=== PATIENT | male | born 1940 | race Two or more races ===

== ENCOUNTER 2019-09-05 09:59 | Emergency (ER) | payer MEDICARE, MEDICAID ==
[~2019-09-05] VITALS: Ht 157.5 cm; Wt 79.8 kg
--- NOTE | 2019-09-05 10:09 | NUR ---
DR TITUS AT BEDSIDE
--- NOTE | 2019-09-05 10:24 | NUR ---
URINE SAMPLE SENT TO LAB
[2019-09-05 10:28] LABS: APPEARANCE,URINE Clear (CLEAR); BILIRUBIN,URINE Negative (NEGATIVE); BLOOD, URINE Trace-intact Ery/uL (NEGATIVE); COLOR,URINE Yellow (YELLOW); KETONES,URINE Negative (NEGATIVE); LEUKOCYTE ESTERASE ,URINE Negative (NEGATIVE); NITRITE, URINE Negative (NEGATIVE); PH,URINE 5.5 (5.0-8.0); PROTEIN,URINE Negative (NEGATIVE); UGLUCOSE Negative (NEGATIVE); UROBILINOGEN,URINE 0.2 EU/dL (0.2)
[2019-09-05 10:38] LABS: BACTERIA,URINE None seen /HPF (None Seen); SQUAMOUS EPITHELIAL CELL,UR Rare /HPF (None Seen); WBC,URINE 0-1 /HPF (0-3)
--- NOTE | 2019-09-05 11:25 | NUR ---
Patient discharged to home in stable condition. Written and verbal after care instructions given. Patient verbalizes understanding of instruction.
[2019-09-05 12:16] VITALS: BP 168/93
== END 2019-09-05 11:25 | disposition home or self-care (01) ==
LOC: ER 09:59 → EDBD 09:59 → ER 11:25
DX: R51 Headache (principal); I10 Essential (primary) hypertension
CPT/HCPCS: 81000-TC

== ENCOUNTER 2021-06-26 18:36 | Inpatient (IN) | payer MEDICARE, OTHER ==
[~2021-06-26] VITALS: Ht 175.3 cm; Wt 86.2 kg
--- NOTE | 2021-06-26 18:52 | NUR ---
BIBSON C/O SHORTNESS OF BREATH STARTED TODAY. PT A/OX4. ON NRB 15L. LLQ S/P INGUINAL HERNIA REPAIR FROM 06/21/21 KEPT C/D/I. CONNECTED PT TO POX AND TELE MONITOR.
--- NOTE | 2021-06-26 18:53 | NUR ---
PT AWAKE AND RESPONSIVE; ON NRB SATTING AT 77%
--- NOTE | 2021-06-26 18:55 | NUR ---
RT AT PT'S BEDSIDE
--- NOTE | 2021-06-26 18:56 | NUR ---
PT'S O2 SATTING UP TO 95% ON NRB
--- NOTE | 2021-06-26 18:58 | NUR ---
LAC #18G S/L; PATENT AND INTACT. BLOOD WORK COLLECTED AND SENT TO LAB
--- NOTE | 2021-06-26 19:00 | NUR ---
PT ON HI-FLOW 40L FIO2 100%; SATTING AT 95%. TOLERATING WELL
--- NOTE | 2021-06-26 19:03 | NUR ---
Vivienne mayes in EDM - 06/27/21 at 0226 by KAILA ANNABEL C/O SHORTNESS OF BREATH STARTED TODAY. PT A/OX4. ON NRB 15L. LLQ S/P INGUINAL HERNIA REPAIR FROM 06/21/21 KEPT C/D/I. CONNECTED PT TO POX AND TELE MONITOR.
[2021-06-26 19:15] LABS: BASOPHILS % (AUTO) 0.4 % (0.0-2.0); EOSINOPHILS % (AUTO) 1.8 % (0.0-6.0); HEMATOCRIT 33 % (39-51); HEMOGLOBIN 11.3 g/dL (13.5-17.5); LYMPHOCYTES # (AUTO) 1.7 K/uL (0.8-4.8); LYMPHOCYTES % (AUTO) 23.8 % (20.0-44.0); MEAN CORPUSCULAR HGB CONC 34 g/dl (31.0-36.0); MEAN CORPUSCULAR VOLUME 95 fL (80-96); MONOCYTES # (AUTO) 0.4 K/uL (0.1-1.30); MONOCYTES % (AUTO) 6.3 % (2.0-12.0); NEUTROPHILS # (AUTO) 4.8 K/uL (1.8-8.9); NEUTROPHILS % (AUTO) 67.7 % (43.0-81.0); PLATELET COUNT (AUTO) 265 K/uL (150-450); RED BLOOD CELL COUNT(AUTO) 3.52 MIL/uL (4.5-6.0)
--- NOTE | 2021-06-26 19:27 | NUR ---
F/C 16FR INSERTED WITH YELLOW URINE OUTPUT; PATENT AND INTACT.
--- NOTE | 2021-06-26 19:28 | NUR ---
URINE COVID SWAB COLLECTED AND SENT TO LAB
[2021-06-26 19:32] LABS: CALCIUM, SERUM 9.4 mg/dL (8.5-10.1); CARBON DIOXIDE 26 mmol/L (21-32); CHLORIDE 106 mmol/L (98-107); CREATININE 1.5 mg/dL (0.6-1.3); GLUCOSE 200 mg/dL (74-106); POTASSIUM 3.6 mmol/L (3.5-5.1); SODIUM SERUM 141 mmol/L (136-145); UREA NITROGEN, BLOOD 22 mg/dL (7-18)
[2021-06-26 19:46] LABS: ALANINE AMINOTRANSFERASE 28 U/L (12-78); ALBUMIN 3.2 g/dL (3.4-5.0); ALKALINE PHOSPHATASE 89 U/L (46-116); ASPARTATE AMINOTRANSFERASE 34 U/L (15-37); BILIRUBIN,DIRECT 0.1 mg/dL (0.0-0.2); BILIRUBIN,TOTAL 0.4 mg/dL (0.2-1.0); TOTAL PROTEIN, SERUM 7.7 g/dL (6.4-8.2)
--- NOTE | 2021-06-26 19:48 | NUR ---
UPDATED ROSALINE SON ON PT'S CURRENT STATUS
[2021-06-26] MEDS ORDERED: CEFEPIME 1 GM VIAL ONE (19:52)
[2021-06-26] MEDS ORDERED: VANCOMYCIN 1 GM VIAL ONE (19:52)
[2021-06-26 19:54] LABS: D-DIMER 1.44 mg/L(FEU (0.17-0.50)
--- NOTE | 2021-06-26 19:54 | NUR ---
MOVE SHEET SUBMITTED.
--- NOTE | 2021-06-26 19:56 | NUR ---
ICU 256
[2021-06-26] MEDS ORDERED: VANCOMYCIN 1 GM in IV D5W 250 ML IV ONE (20:00)
[2021-06-26] MEDS ORDERED: CEFEPIME 2 GM in IV D5W 50 ML IV ONE (20:00)
[2021-06-26] MEDS ORDERED: DEXAMETHASONE SOD PHOSPHATE 10 MG/ML VIAL IV ONE (20:00)
[2021-06-26 20:04] LABS: BILIRUBIN,URINE Negative (NEGATIVE); COLOR,URINE YELLOW (YELLOW); LEUKOCYTE ESTERASE ,URINE Negative (NEGATIVE); NITRITE, URINE Negative (NEGATIVE); PH,URINE 5.5 (5.0-8.0); PROTEIN,URINE Negative (NEGATIVE); UGLUCOSE Negative (NEGATIVE); UROBILINOGEN,URINE 0.2 EU/dL (0.2)
--- NOTE | 2021-06-26 20:12 | NUR ---
RT AT PT'S BEDSIDE FOR ABG
[2021-06-26 20:19] LABS: RBC,URINE 21-50 /HPF (0-2)
--- NOTE | 2021-06-26 20:19 | NUR ---
NENA BARTLETT NURSE AT PT'S BEDSIDE
[2021-06-26 20:20] LABS: BACTERIA,URINE Few /HPF (None Seen); CALCIUM OXALATE CRYSTALS,UR Moderate /HPF (None Seen); MUCUS,URINE Few /LPF (None Seen); SQUAMOUS EPITHELIAL CELL,UR Few /HPF (None Seen); WBC,URINE 0-2 /HPF (0-3)
--- NOTE | 2021-06-26 20:31 | NUR ---
THEO #18G S/L; PATENT AND INTACT.
--- NOTE | 2021-06-26 20:39 | NUR ---
RT REED SHOWED GINNY HARRISON ABG RESULTS WITH NO NEW ORDERS
[2021-06-26] MEDS ORDERED: ASPIRIN 81 MG TAB.CHEW PO STA (20:55)
[2021-06-26] MEDS ORDERED: IOHEXOL-350 100 ML VIAL IV ONE (20:57)
--- NOTE | 2021-06-26 21:00 | NUR ---
SPOKE TO PT'S SONS REGARDING ELEVATED D DIMER AND MD'S ORDER FOR CTA. PT'S KIDNEY FUNCTION LEVEL AND HEART CONDITION WERE ALSO EXPLAINED TO THE SONS. SONS WILL DECIDE IF THEY WANNA PROCEED W/ THE CTA AND WILL INFORM US
[2021-06-26] MEDS ORDERED: ASPIRIN 81 MG TAB.CHEW ONE (21:11)
--- NOTE | 2021-06-26 21:33 | NUR ---
ROSALINE SON AT PT'S BEDSIDE
--- NOTE | 2021-06-26 21:49 | NUR ---
RT AND GINNY HARRISON AT PT'S BEDSIDE. ROSALINE SON AND PT AGREED TO CTA. DR EXPLAINED RISKS AND BENEFITS; SON AGREED
[2021-06-26] MEDS ORDERED: IV NS 0.9% 500 ML BAG IV ONE (22:00)
--- NOTE | 2021-06-26 22:00 | NUR ---
PER GINNY HARRISON VERBAL ORDERS: ETOMIDATE 20MG ADMINISTERED
--- NOTE | 2021-06-26 22:01 | NUR ---
PER GINNY HARRISON VERBAL ORDERS: ROCURONIUM BROMIDE 20MG ADMINISTERED
--- NOTE | 2021-06-26 22:02 | NUR ---
RT notes Pt orally intubated by CHEYENNE HARRISON with 7.5 ETT secured at 24cm at the lip line. CO2 color change noted. Mist in tube noted. Equal chest rise noted. Pt placed on [facility] vent on settings AC mode, RR 24, VT 500, FIO2 100%, PEEP +10. Alarms set and audible. Vent plugged to red outlet. Ambubag at bedside. Addendum: 06/26/21 at 2300 by DEREK ARIZA RT Amended: Links added.
--- NOTE | 2021-06-26 22:02 | NUR ---
PT INTUBATED BY GINNY HARRISON + DEREK RT & MYRON RT : AC: 24 RATE: 24 CT: 500 FIO2 100% PEEP 10 7.5 ETT SECURED AT 24
--- NOTE | 2021-06-26 22:44 | NUR ---
R INGUINAL CENTRAL LINE - 3 LUMEN INSERTED BY GINNY HARRISON; PATENT AND INTACT. UNSUCCESSFUL ATTEMPT OF CENTRAL LINE - 3 LUMEN IN RIJ, GINNY HARIRSON DID NOT REMOVE. CHARGE NURSE AWARE.
--- NOTE | 2021-06-26 22:45 | NUR ---
RIJ PICCLINE 1 LUMEN; PATENT AND INTACT. GOOD BLOOD RETURN NOTED
[2021-06-26] MEDS ORDERED: ZOLPIDEM TARTRATE 5 MG TABLET PO PRN (23:00)
[2021-06-26] MEDS ORDERED: ACETAMINOPHEN 325 MG TABLET PO PRN (23:00)
[2021-06-26] MEDS ORDERED: MAG HYDROX/AL HYDROX/SIMETH 30 ML UDC PO PRN (23:00)
[2021-06-26] MEDS ORDERED: ONDANSETRON HCL/PF 4 MG/2 ML VIAL IVP PRN (23:00)
[2021-06-26] MEDS ORDERED: Z GUARD REMEDY 2 OZ OINT TP PRN (23:00)
[2021-06-26] MEDS ORDERED: IV NS 0.9% 1,000 ML IV ONE (23:00)
[2021-06-26] MEDS ORDERED: MAGNESIUM HYDROXIDE 30 ML UDC PO PRN (23:00)
[2021-06-26] MEDS ORDERED: ENOXAPARIN SODIUM 80 MG/0.8 ML DISP.SYRIN SQ STA (23:07)
--- NOTE | 2021-06-26 23:12 | NUR ---
BLOODWORK DRAWN AND GIVEN TO MECHANICAL ESTIMATOR. RT AT BEDSIDE ABG DRAWN
[2021-06-26] MEDS ORDERED: CEFTRIAXONE 1GM BAG (ER ONLY) 50 ML IV ONE (23:19)
[2021-06-26] MEDS ORDERED: ENOXAPARIN SODIUM 80 MG/0.8 ML DISP.SYRIN SQ ONE (23:19)
--- NOTE | 2021-06-26 23:23 | NUR ---
REIMBURSEMENT REP Addendum: 06/26/21 at 2324 by KAILA REIMBURSEMENT REP AT BEDSIDE
[2021-06-26] MEDS ORDERED: FENTANYL CITRAT IV 2,500 MCG in IV NS 0.9% 200 ML IV PRN (23:30)
[2021-06-26] MEDS: CEFTRIAXONE 1 G in IV D5W 50 ML IV SCH (23:37)
[2021-06-26] MEDS ORDERED: TAMS-12 PO (23:50)
[2021-06-26] MEDS ORDERED: SERT100T PO (23:50)
[2021-06-26] MEDS ORDERED: DUTA0.5C PO (23:50)
[2021-06-26] MEDS ORDERED: TIMO5SOL11 EACHEYE (23:50)
[2021-06-26] MEDS ORDERED: ATOR20TA PO (23:50)
[2021-06-26] MEDS ORDERED: LOSA50TA39 PO (23:50)
[2021-06-26] MEDS ORDERED: LATA5DRO OP (23:50)
[2021-06-26] MEDS ORDERED: TRAZ-182 PO (23:50)
--- NOTE | 2021-06-26 23:51 | NUR ---
RT CALLED TO TRANSPORT PT TO CT
[2021-06-27] VITALS (97 sets, daily range): BP systolic 69–157; BP diastolic 38–74
[2021-06-27 00:04] LABS: C-REACTIVE PROTEIN 5.6 mg/dL (0.0-0.9)
--- NOTE | 2021-06-27 00:06 | NUR ---
PT IS TAKEN TO CT UNDER ACLS , ACCOMPANIED BY RT AND RN
[2021-06-27] MEDS ORDERED: PROPOFOL 100 ML ONE (00:14)
[2021-06-27] MEDS: PROPOFOL 100 ML IV PRN ×9 (00:15→22:25)
--- NOTE | 2021-06-27 01:09 | NUR ---
REPORT GIVEN TO NENA DESAI RN
--- NOTE | 2021-06-27 01:22 | NUR ---
BLOODWORK DRAWN AND SENT TO LAB
--- NOTE | 2021-06-27 01:23 | NUR ---
ROSALINE NOTIFIED PT BEING TRANSFERRED TO ICU
--- NOTE | 2021-06-27 01:26 | NUR ---
PT WAS TRANSFERRED TO ICU 256 UNDER ACLS . ACCOMPANIED BY EMT, RN AND RT
--- NOTE | 2021-06-27 01:38 | NUR ---
AMERICAN BOARD CERTIFIED ORTHOTIST NOTES, RECEIVED PATIENT FROM ER DEPARTMENT VIA STRETCHER, ACCOMPANIED BY 2 NURSES AND RT, PATIENT ON MECHANICAL VENTILATOR AC MODE INTUBATED ETT 7.5 LIP, PATIENT WITH O2 70% ON AC 24, TV 500, FIO2 100%, PEEP 10, RT AT BEDSIDE, MAX O2 DELIVERED, ATTACHED TO SALES AMBASSADOR WITH 120-130S V PACING , SKIN INTACT, AFEBRILE, RIGHT FEMORAL TRIPLE LUMEN, RIGHT IJ PIV, THEO MIDLINE AND LEFT AC PIV LINE IN PLACE ALL PATENT AND INTACT, PATIENT ON PROPOFOL AT 10MCG/KG/MIN, PATIENT WITH MILD AGITATION WILL TITRATE NEEDED, AND PER PROTOCOL, WILL CONTINUE TO MONITOR CLOSELY, ALL NEEDS AND SAFETY MEASURES IN PLACE.
--- NOTE | 2021-06-27 01:45 | NUR ---
RN NOTES, PATIENT CLEAN AND DRY, BED BATH PROVIDED, S/R OF BED UPX2, BED LOCKED AND IN LOWEST POSITION.
--- NOTE | 2021-06-27 01:46 | NUR ---
PT TRANSFERRED TO ICU 256 VIA ACLS PROTOCOL WITH RT, EMT, RT. GAVE NENA TRAIN CONDUCTOR ENDORSEMENT FOR LUIS ALBERTO
--- NOTE | 2021-06-27 01:49 | NUR ---
PER LAB, TROP 4.765
--- NOTE | 2021-06-27 01:50 | NUR ---
CALLED ASSOCIATE CIVIL ENGINEER, ED, AND INFORMED THAT TROP IS 4.371
--- NOTE | 2021-06-27 03:10 | NUR ---
PEEP increased to 15 per MD orders
--- NOTE | 2021-06-27 03:22 | NUR ---
0310 ANDONIAN AUTOMATION TECHNOLOGIST REPLIED AND INFORMED THAT PATIENT SINCE ADMISSION WITH O2 70-72% AT [id number], AND RT SUGGESTING TO INCREASE PEEP TO 15, HE AGREED TO INCREASED PEEP TO 15, INFORMED ALSO CRITICAL TROPONIN 4.371 AND HE REPLIED WITH ORDRES TO WAIT FOR THE NEXT TROPONIN LEVEL, AND ASKED IF LOVENOX WAS GIVEN IN ER, LOVRENOX WAS GIVEN IN ER, ALSO PER SON [id number] TO RAPID COVID TEST, PER JANETN AGREED TO DO COVID RAPID TEST, ALL ORDERS NOTED AND CARRIED OUT.
--- NOTE | 2021-06-27 03:28 | NUR ---
0325 CALLED LAB AND REQUESTED COVID 19 RAPID KIT.
[2021-06-27 04:49] LABS: CHOLESTEROL 219 mg/dL (<200); HDL CHOLESTEROL 32 mg/dL (40-60); LDL 142 mg/dL (0-99); TRIGLYCERIDES 167 mg/dL (30-150)
[2021-06-27 04:53] LABS: CARBON DIOXIDE 21 mmol/L (21-32); CHLORIDE 109 mmol/L (98-107); CREATININE 1.3 mg/dL (0.6-1.3); GLUCOSE 218 mg/dL (74-106); MAGNESIUM 1.8 mg/dL (1.8-2.4); POTASSIUM 3.8 mmol/L (3.5-5.1); SODIUM SERUM 141 mmol/L (136-145); UREA NITROGEN, BLOOD 23 mg/dL (7-18)
[2021-06-27] MEDS ORDERED: NOREPINEPHRINE 8MG/250ML RTU 250 ML IV ONE (05:41)
[2021-06-27] MEDS: NOREPINEPHRINE 8 MG in IV NS 0.9% 242 ML IV PRN ×3 (05:50→18:26)
--- NOTE | 2021-06-27 06:05 | NUR ---
PAGED DR CRUZ AT THIS TIME TO REPORT CRITICAL TROPONIN OF 8.595, PER SET OFF PRESS OPERATOR HE WILL PAGE HIM, AWAITING FOR CALL BACK.
[2021-06-27 06:13] LABS: BASOPHILS % (AUTO) 0.3 % (0.0-2.0); HEMATOCRIT 36 % (39-51); HEMOGLOBIN 11.9 g/dL (13.5-17.5); LYMPHOCYTES # (AUTO) 0.8 K/uL (0.8-4.8); LYMPHOCYTES % (AUTO) 14.5 % (20.0-44.0); MEAN CORPUSCULAR HGB CONC 33 g/dl (31.0-36.0); MEAN CORPUSCULAR VOLUME 96 fL (80-96); MONOCYTES # (AUTO) 0.2 K/uL (0.1-1.30); MONOCYTES % (AUTO) 3.2 % (2.0-12.0); NEUTROPHILS # (AUTO) 4.5 K/uL (1.8-8.9); PLATELET COUNT (AUTO) 293 K/uL (150-450); RED BLOOD CELL COUNT(AUTO) 3.72 MIL/uL (4.5-6.0); WHITE BLOOD COUNT (AUTO) 5.5 K/uL (4.3-11.0)
--- NOTE | 2021-06-27 06:25 | NUR ---
RN NOTES, PAGED ANDONIAN AT THIS TIME AGAIN TO REPORT CRITICAL TROPONIN LEVEL, PER ROUGH CARPENTER, HE WILL LET HIM KNOW, ENDORSED TO ROUGH CARPENTER THAT NEED TO REPORT CRITICAL TROPONIN, AWAITING FOR CALL BACK.
--- NOTE | 2021-06-27 06:40 | NUR ---
RN NOTES, ANTHONY CALLED BACK AND REPORTED THE CRITICAL TROPONIN FOR THIS MORNING [id number] REPORTED FROM ER AND LATER REPORTED FROM LAB 9.050, AND PER ANTHONY DAY SHIFT DR WILL TAKE CARE OF IT. NO NEW ORDERS RECEIVED FROM ANTHONY.
--- NOTE | 2021-06-27 07:31 | NUR ---
RN CLOSING NOTES, PATIENT CONT ON MECHANICAL VENTILATOR AC MODE INTUBATED ETT 7.5 LIP, ON AC , TV 500, FIO2 100%, PEEP 15, NSR 90S AT THIS TIME, O2 93% AT THIS TIME, AFEBRILE, RIGHT FEMORAL TRIPLE LUMEN, RIGHT IJ PIV, THEO MIDLINE AND LEFT AC PIV LINE IN PLACE ALL PATENT AND INTACT, PATIENT ON PROPOFOL AT 35MCG/KG/MIN, NS 0.9 AT 75ML/HR AND LEVO AT 0.2MCG/KG/MIN, ALL NEEDS AND SAFETY MEASURES IN PLACE, ENDORSED TO NIRAJ PONCE FOR CONTINUATION OF CARE, ENDORSE THE CRITICAL TROPONIN TO DR SAADIA HEALY HERE AT THIS TIME AND AWARE OF HIGH TROPONIN.
--- NOTE | 2021-06-27 08:00 | NUR ---
RN NOTES RECEIVED PATIENT ETT/VENT SETTING FIO2-100%, PEEP-15, AC -[address] BOBO ORDER. PATIENT SEDATED AT THIS TIME DIPRIVAN 40MCG/KG/HR ON RIGHT FEMORAL CATH INTACT, ALSO INFUSING LEVOPHED 0.4 MCG/KG/HR, AND NS @75ML/HR INTACT ON LEFT UA MIDLINE INTACT. PATIENT WEIGHT IS 180LB, ASSIST TURN AND REPOSTION Q 2 HR. NGT INTACT AND CLAMPED, DUE MEDICATION ADMINISTERED VIA NGT. QUINONES DRAINING YELLOW OUTPUT. BILATERAL RESTRAIN CHECKED FOR CIRCULATION Q 2 HR. KEEP HOB ELEVATED FOR ASPIRATION PRECAUTION. WILL FOLLOW UP.
[2021-06-27] MEDS ORDERED: ROCURONIUM BROMIDE 50 MG/5 ML IV ONE (08:08)
[2021-06-27] MEDS ORDERED: ETOMIDATE 2 MG/ML VIAL IV ONE (08:08)
[2021-06-27] MEDS: HYDROCORTISONE SOD SUCCINATE 100 MG/2 ML VIAL IV SCH ×3 (08:31→20:43)
[2021-06-27] MEDS: ENOXAPARIN SODIUM 80 MG/0.8 ML DISP.SYRIN SQ SCH ×2 (08:32→20:44)
[2021-06-27] MEDS: TIMOLOL -XE 0.5% 5 ML BOTTLE EACHEYE SCH (09:00)
--- NOTE | 2021-06-27 09:12 | NUR ---
RT PER DR BIANCHI ORDER RR INCREASEWD TO 28. RN NOTIFIED. ABG'S CONTINUE TO NOT CROSS OVER INTO [facility], PAPER RESULTS INSERTED INTO PATIENTS CHART. Addendum: 06/27/21 at 0913 by BRITTNY ALEJANDRO RT Amended: Links added.
[2021-06-27] MEDS: ATORVASTATIN 10 MG TABLET PO SCH (09:43)
[2021-06-27 11:40] LABS: ABG BASE EXCESS -6.8 mmol/L; ABG PCO2 44.1 mmHg (35.0-45.0); ABG PH 7.271 (7.350-7.450); ABG PO2 57.3 mmHg (75.0-100.0); COHb 0.3 % (0.5-1.5); MetHb 0.2 % (0.0-1.5); SITE, ABG Left Radial
[2021-06-27 11:40] LABS: ABG PCO2 30.1 mmHg (35.0-45.0); ABG PH 7.445 (7.350-7.450); ABG PO2 63.2 mmHg (75.0-100.0); COHb 0.3 % (0.5-1.5); MetHb 0.3 % (0.0-1.5); O2Hb 91.1 % (94.0-97.0); SITE, ABG Left Radial
--- NOTE | 2021-06-27 11:44 | NUR ---
RN NOTES AFTER ABG RESULT GET NEW ORDER TITRATED TV [address] BOBO ORDER. RT AWARE OF. GET CALL FROM SON NAME MAGDIEL FOR UPDATING PATIENT S CONDITION, PER SON PATIENT HAS ALSO BPH, AND GAVE PRIMARY ASSEMBLY STOCK SUPERVISOR NAME PHONE NUMBER IF NEEDED Dr NARANJO PHONE # [phone].
--- NOTE | 2021-06-27 11:59 | NUR ---
RT PER DR BIANCHI ORDER VT LOWERED TO 480. RN AWARE Addendum: 06/27/21 at 1159 by BRITTNY ALEJANDRO RT Amended: Links added.
[2021-06-27] MEDS: FLUDROCORTISONE 0.1 MG TABLET NG SCH ×3 (12:51→23:24)
[2021-06-27 13:25] LABS: ABG OXYGEN SATURATION 92.4 % (92.0-98.5); ABG PCO2 41.5 mmHg (35.0-45.0); ABG PH 7.211 (7.350-7.450); ABG PO2 70.9 mmHg (75.0-100.0); AaDO2 600.6 mmHg; COHb 0.1 % (0.5-1.5); O2Hb 92.3 % (94.0-97.0); SITE, ABG Right Radial
[2021-06-27 13:25] LABS: ABG BASE EXCESS -7.6 mmol/L; ABG OXYGEN SATURATION 90.9 % (92.0-98.5); ABG PCO2 51.9 mmHg (35.0-45.0); ABG PH 7.212 (7.350-7.450); ABG PO2 67.3 mmHg (75.0-100.0); AaDO2 593.8 mmHg; COHb 0.3 % (0.5-1.5); MetHb 0.3 % (0.0-1.5); O2Hb 90.4 % (94.0-97.0); SITE, ABG Right Radial
--- NOTE | 2021-06-27 14:20 | NUR ---
RN NOTES PATIENT STABLE, FIO2-90% AT THIS TIME, WILL FOLLOW UP.
--- NOTE | 2021-06-27 18:30 | NUR ---
RN NOTES PM CARE DONE, DUE MEDICATION ADMINISTERED,NO SECRETION, KEEP HOB ELEVATED, NGT INTACT. ASSIST TURN AND REPOSTION Q 2 HR, QUINONES DRAINING 500ML TOTAL SHIFT. RIGHT FEMORAL CENTRAL LINE INTACT INFUSING DIPRIVAN 45 MCG/KG/HR, LEVOPHED 0.4 MCG/KG/HR. RESTRAIN RECHECKED FOR CIRCULATION Q2 HR. ENDORSED ONCOMING NURSE LUIS ALBERTO.
--- NOTE | 2021-06-27 19:45 | NUR ---
RN NOTES RECEIVED PATIENT ORALLY INTUBATED ON DROPLET PRECAUTION DUE TO PENDING RESULT OF COVID PCR TEST RESULT. PATIENT HAS ETT 7.5 AND 24 CM AT LIP WITH AC 28 TV 480 FIO2 80% PEEP 15. PATIENT IS SEDATED WITH DIPRIVAN @ 45 MCG/KG/MIN. V PACING ON MONITOR. 100%. WITH RIGHT NGT INTACT AND PATENT WITH 100 CC PINKED TINGED RESIDUAL PRESENT. IV SITE ON LAC G 18 AND THEO MIDLINE AND RIGHT FEMORAL PICC LINE INTACT AND PATENT RUNNING WITH PROPOFOL AND LEVOPHED STANDARD DOSE AT 0.4 MCG/KG/MIN. WILL TITRATED PROTOCOL ORDER. [place] HAS QUINONES CATH DRAINED VIA GRAVITY KEP TOFF FROM THE FLOOR. TURN AND REPOSITION Q2H AND PRN. KEPT PT CLEAN AND COMFORTABLE IN BED. WILL CLOSELY MONITOR.
--- NOTE | 2021-06-27 20:00 | NUR ---
RN NOTES RECEIVED PATIENT ASLEEP ON BED WITH HFNC 40L FIO2 65% SATURATION BETWEEN 90-93%. BREATHING EVEN AND UNLABORED. RESPONSIVE TO NAME AND TACTILE STIMULI. AFEBRILE. VSS. ISOLATION PRECAUTION STRICTLY OBSERVED DUE TO + COVID PNA. PATIENT ON IVF / NS @ 50 ML/HR INTACT AND PATENT. INCONTINENT CARE RENDERED DESPITE THE [place] IS IN PLACED. RIGHT WRIST RESTRAINT KEPT IN PLACED. KEPT PT CLEAN AND COMFORTABLE IN BED. KEPT BED IN LOW POSITION. WILL CLOSELY MONITOR. Addendum: 06/28/21 at 0113 by ITZ WILLARD RN ERROR- WRONG PATIENT DOCUMENTATION
[2021-06-27] MEDS ORDERED: NOREPINEPHRINE 32 MG in IV NS 0.9% 218 ML IV PRN (22:00)
[2021-06-27] MEDS: LATANOPROST EYE DROP 0.005% 2.5 ML BOTTLE OP SCH (22:21)
[2021-06-27] MEDS: CEFTRIAXONE 1 G in IV D5W 50 ML IV SCH (22:25)
[2021-06-27] MEDS ORDERED: AZITHROMYCIN 250 MG TABLET PO ONE (23:00)
--- NOTE | 2021-06-27 23:00 | NUR ---
RN NOTES MARLEEN SON CALLED FOR THE SECOND TIME STATING THAT HE NEEDS TO BE INFORM IF THE PATIENT IS GONNA GET REMDESIVIR BECAUSE HE HEARS A LOT OF BAD THINGS ON THIS MEDS. ASSURE SON THAT WE WILL INFORM MORNING SHIFT ABOUT HIS CONCERN.
[2021-06-28] VITALS (96 sets, daily range): BP systolic 75–128; BP diastolic 33–80
[2021-06-28] MEDS: PROPOFOL 100 ML IV PRN ×6 (02:23→21:39)
[2021-06-28 04:30] LABS: HEMATOCRIT 32 % (39-51); HEMOGLOBIN 10.5 g/dL (13.5-17.5); LYMPHOCYTES # (AUTO) 0.8 K/uL (0.8-4.8); LYMPHOCYTES % (AUTO) 4.2 % (20.0-44.0); MEAN CORPUSCULAR HGB CONC 33 g/dl (31.0-36.0); MEAN CORPUSCULAR VOLUME 96 fL (80-96); MONOCYTES # (AUTO) 0.7 K/uL (0.1-1.30); MONOCYTES % (AUTO) 3.6 % (2.0-12.0); NEUTROPHILS # (AUTO) 18.8 K/uL (1.8-8.9); NEUTROPHILS % (AUTO) 92.2 % (43.0-81.0); PLATELET COUNT (AUTO) 285 K/uL (150-450); WHITE BLOOD COUNT (AUTO) 20.4 K/uL (4.3-11.0)
[2021-06-28 04:39] LABS: ALANINE AMINOTRANSFERASE 40 U/L (12-78); ALBUMIN 2.3 g/dL (3.4-5.0); ALKALINE PHOSPHATASE 75 U/L (46-116); ASPARTATE AMINOTRANSFERASE 145 U/L (15-37); BILIRUBIN,TOTAL 0.2 mg/dL (0.2-1.0); CALCIUM, SERUM 8.1 mg/dL (8.5-10.1); CARBON DIOXIDE 23 mmol/L (21-32); CHLORIDE 108 mmol/L (98-107); CREATININE 2.1 mg/dL (0.6-1.3); GLUCOSE 183 mg/dL (74-106); MAGNESIUM 1.9 mg/dL (1.8-2.4); PHOSPHORUS 5.3 mg/dL (2.5-4.9); POTASSIUM 4.9 mmol/L (3.5-5.1); SODIUM SERUM 140 mmol/L (136-145); TOTAL PROTEIN, SERUM 6.6 g/dL (6.4-8.2); UREA NITROGEN, BLOOD 31 mg/dL (7-18)
[2021-06-28] MEDS: HYDROCORTISONE SOD SUCCINATE 100 MG/2 ML VIAL IV SCH ×3 (05:12→21:37)
[2021-06-28] MEDS: FLUDROCORTISONE 0.1 MG TABLET NG SCH ×3 (05:12→17:50)
--- NOTE | 2021-06-28 07:05 | NUR ---
RN NOTES RECEIVED PT ON BED, INTUBATED AND SEDATED, TOLERATING VENT SETTING WELL, O2 SAT WNL, ON TELE V- PACING , R NARE NGT PLACEMENT CHECKED , PT IS NPO AT THIS TIME, IV SITES CLEAN, DRY AND INTACT, ON PROPOFOL AT 50MCG/KG/MIN. LEVO AT .3 MCG/KG/MIN FOR BP SUPPORT, SR UP x3, CALL LIGHT WITHIN EASY REACH, BED LOCKED AND IN LOWEST POSITION, CONTINUE TO MONITOR .
--- NOTE | 2021-06-28 07:12 | NUR ---
RN NOTES 0610 AM - CALLED AND SPOKE WITH DR. CRUZ REGARDING PATIENT CRITICAL TROPONIN 18. 220 PER MD TROPONIN LEVEL IS NOT BECAUSE OF NSTEMI, KEEP BP WITHIN NORMAL RANGE INCREASE PRESSOR IF NEEDED TO HELP DECREASE TROPONIN LEVEL. 0700 AM - PT REMAINED IS SEDATED, ORALLY INTUBATED WITH VENT SETTING TOLERATED WELL. SATURATION 100%.AFEBRILE. VSS WITH DIPRIVAN TITRATED PROTOCOL ORDER. TURN AND REPOSITION Q2H AND PRN. KEPT PT CLEAN AND COMFORTABLE IN BED. CONTINUE ON DROPLET PRECAUTION AWAITING FOR PCR RESULT.
[2021-06-28 07:49] LABS: ABG BASE EXCESS -7.8 mmol/L; ABG OXYGEN SATURATION 98.3 % (92.0-98.5); ABG PCO2 44.6 mmHg (35.0-45.0); ABG PO2 147.8 mmHg (75.0-100.0); AaDO2 375.8 mmHg; COHb 0.3 % (0.5-1.5); MetHb 0.2 % (0.0-1.5); O2Hb 97.8 % (94.0-97.0); SITE, ABG Right Radial
[2021-06-28] MEDS: ATORVASTATIN 10 MG TABLET PO SCH (08:04)
[2021-06-28] MEDS: ENOXAPARIN SODIUM 80 MG/0.8 ML DISP.SYRIN SQ SCH ×2 (08:05→21:37)
[2021-06-28] MEDS: TIMOLOL -XE 0.5% 5 ML BOTTLE EACHEYE SCH (08:07)
[2021-06-28] MEDS ORDERED: PROPOFOL 100 ML IV PRN (08:30)
--- NOTE | 2021-06-28 09:17 | NUR ---
WOUND CARE CONSULT: PT IS INTUBATED AND SEDATED. REVIEWED CHART AND NURSING DOCUMENTATION. DISCUSSED SKIN PROTECTION WITH NURSING STAFF. FIRST STEP LOW AIRLOSS MATTRESS IS ON ORDER. MD IN AGREEMENT WITH PLAN OF CARE.
[2021-06-28] MEDS: IV D5/ 0.9% NACL 1,000 ML IV PRN (11:13)
[2021-06-28] MEDS ORDERED: GLUCERNA 1.2 1,000 ML BOTTLE NG PRN (14:00)
[2021-06-28] MEDS ORDERED: VASOPRESSIN INJ 40 UNIT in IV NS 0.9% 38 ML IV PRN (15:00)
--- NOTE | 2021-06-28 15:30 | NUR ---
RN NOTES ORDER RECEIVED FROM DR HSU TO CHANGE LEVO DRIP TO MUKESH BECAUSE OF HR OF 130'S, CONTINUE TO MONITOR
[2021-06-28] MEDS: PHENYLEPHRINE 50 MG in IV NS 0.9% 245 ML IV PRN ×3 (15:43→22:15)
--- NOTE | 2021-06-28 17:46 | NUR ---
RT PATIENT REMAINS ORALLY INTUBATED ON [facility] VENT. FIO2 AT 80% AND PEEP OF 12. PATIENT IN CRITICAL CONDITION. AMBU BAG AT HOB. Addendum: 06/28/21 at 1747 by BRITTNY ALEJANDRO RT Amended: Links added.
[2021-06-28] MEDS: VASOPRESSIN INJ 40 UNIT in IV NS 0.9% 38 ML IV PRN (18:02)
--- NOTE | 2021-06-28 18:50 | NUR ---
RN NOTES MUKESH AT 3 MCG/KG/MIN , VASOPRESSIN AT .04 AT THIS TIME , SBP STILL IN LOW 80'S , DR WARD NOTIFIED, ORDER RECEIVED TO RESTART LEVO DRIP . CONTINUE TO MONITOR .
[2021-06-28] MEDS: NOREPINEPHRINE 32 MG in IV NS 0.9% 218 ML IV PRN (19:15)
--- NOTE | 2021-06-28 19:22 | NUR ---
RN NOTES PT REMAINS INTUBATED AND SEDATED, MUKESH AND VASOPRESSIN ARE A MAXIMUM RATE , SBP STILL IN LOW 80'S , LEVO RESTARTED PER DR WARD ORDER , DIPRIVAN AT 30 MCG/KG/MIN , O2 SAT WNL, WILL ENDORSE TO FIXED INCOME TRADING VICE PRESIDENT NURSE FOR CONTINUITY OF CARE .
--- NOTE | 2021-06-28 19:30 | NUR ---
RN NOTE RECEIVED PATIENT IN BED, SEDATED. INTUBATED WITH VENT SETTINGS OF AC:28, TV:480, PEEP:12, O2 100%. ON TELEMETRY MONITORING, V-PACING WITH FIRST DEGREE AV-BLOCK, HR OF 130'S, SATURATION UNABLE TO READ. COLD AND CLAMMY SKIN. AFEBRILE AT THIS TIME. NOTED WITH RIGHT SIDE NG-TUBE, PATENT, PLACEMENT VERIFIED VIA AUSCULTATION, RUNNING GLUCERNA 1.2 AT 20 CC/HR. MINIMAL RESIDUAL AT THIS TIME. NOTED WITH LEFT AC 18G, THEO MIDLINE, RIGHT IJ, RIGHT FEMORAL TLC, RUNNING VASOPRESSIN AT 0.04 UNITS/MIN, PROPOFOL 30 MCG/KG/MIN, D5 0.45 NS 60 CC/HR, PHENYLEPHRINE 3MCG/KG/MIN, NOREPINEPHRINE 0.4MCG/KG/MIN. NOTED WITH QUINONES CATHETER. PATENT, DRAINING YELLOW URINE. NO BM NOTED. NOTED WITH BILATERAL SOFT WRIST RESTRAINT. CAPILLARY REFILL WNL. TURNED AND REPOSITIONED. BED LOW, IN LOCKED POSITION. SAFETY MEASURES OBSERVED. CONTACT/DROPLET PRECAUTION OBSERVED PER PENDING PCR RESULT. Addendum: 06/29/21 at 0308 by BROOKS AMATO RN CORRECTION: D5 NS AT 60 CC/HR
--- NOTE | 2021-06-28 20:15 | NUR ---
RT NOTE FIO2 INCREASED DUE TO PT DESAT. Addendum: 06/28/21 at 6 by ORACIO LOPEZ RT Amended: Links added.
[2021-06-28] MEDS ORDERED: MEROPENEM 500 MG in IV NS 0.9% 50 ML IV SCH (20:30)
[2021-06-28] MEDS: MEROPENEM 1 G in IV NS 0.9% 100 ML IV SCH (21:33)
[2021-06-28] MEDS: LATANOPROST EYE DROP 0.005% 2.5 ML BOTTLE OP SCH (21:37)
[2021-06-28] MEDS ORDERED: AZITHROMYCIN 250 MG TABLET PO SCH (23:00)
--- NOTE | 2021-06-28 23:30 | NUR ---
RN NOTES INFORMED ONCALL DR. BREAUX THAT PATIENT MUKESH 50 MG IS ALMOST DONE AND HAD ONLY 3 BAGS ORDER. PER ONCALL CONTINUE NEOSYNEPHRINE AND CHANGE CONCENTRATION TO 100MG. NOTED AND CARRIED OUT ORDER.
[2021-06-28] MEDS ORDERED: PHENYLEPHRINE 10 MG/ML VIAL ONE (23:49)
[2021-06-29] VITALS (88 sets, daily range): BP systolic 37–126; BP diastolic 20–80
[2021-06-29] MEDS: FLUDROCORTISONE 0.1 MG TABLET NG SCH ×4 (00:27→17:23)
[2021-06-29 00:52] LABS: ABG BASE EXCESS -15.7 mmol/L; ABG OXYGEN SATURATION 79.5 % (92.0-98.5); ABG PCO2 37.9 mmHg (35.0-45.0); ABG PH 7.136 (7.350-7.450); ABG PO2 50.6 mmHg (75.0-100.0); AaDO2 624.5 mmHg; COHb 0.3 % (0.5-1.5); MetHb 0.3 % (0.0-1.5); PEEP,BG 12 cm H2O; SITE, ABG Right Brachial; VT, ABG 480 mL
[2021-06-29] MEDS: PHENYLEPHRINE 100 MG in IV NS 0.9% 240 ML IV PRN ×4 (00:57→18:25)
--- NOTE | 2021-06-29 01:00 | NUR ---
RN NOTE NOTED WITH GASTRIC RESIDUAL OF 500 ML. NOTED WITH BROWNISH COLOR OUTPUT. G-TUBE FEEDING ON HOLD AT THIS TIME. WILL RECHECK AFTER 2 HOURS. HOB ELEVATED 35 DEGREES. SKIN COLD AND CLAMMY WITH OXYGEN SATURATION IN THE 80'S. INFORMED DR. BREAUX. ABG TEST COMPLETED. INFORMED MD OF ABG RESULT. PER MD ORDER, INCREASE PEEP FROM 12.0 TO 15.0. NOTED AND CARRIED OUT. NOTIFIED RT. WILL CONTINUE TO MONITOR. Addendum: 06/29/21 at 0641 by BROOKS AMATO RN ON 637, PER SAEID HARRISON SANTA, INCREASE RATE OF D5 NS FROM 60 CC/HR TO 100 CC/HR. NOTED AND CARRIED OUT. WILL CONTINUE TO MONITOR.
--- NOTE | 2021-06-29 01:18 | NUR ---
RT NOTE ABG DONE. CRITICAL VALUES REPORTED TO DR. BREAUX. ORDERED TO INCREASE PEEP FROM 12 TO 15. ALTERATION INSPECTORROSARIO CORADO AWARE. Addendum: 06/29/21 at 0133 by ORACIO LOPEZ RT Amended: Links added.
--- NOTE | 2021-06-29 01:25 | NUR ---
RN NOTE INFORMED MD THAT PATIENT IS COLD AND CLAMMY WITH FAINT OXYGEN SATURATION. PER MD ORDER, STAT CBC. WILL CONTINUE TO MONITOR.
[2021-06-29 02:00] LABS: BASOPHILS % (AUTO) 0.2 % (0.0-2.0); HEMATOCRIT 33 % (39-51); HEMOGLOBIN 10.6 g/dL (13.5-17.5); LYMPHOCYTES # (AUTO) 0.9 K/uL (0.8-4.8); LYMPHOCYTES % (AUTO) 3.8 % (20.0-44.0); MEAN CORPUSCULAR HGB CONC 33 g/dl (31.0-36.0); MEAN CORPUSCULAR VOLUME 98 fL (80-96); MONOCYTES # (AUTO) 0.6 K/uL (0.1-1.30); MONOCYTES % (AUTO) 2.7 % (2.0-12.0); NEUTROPHILS # (AUTO) 22.1 K/uL (1.8-8.9); NEUTROPHILS % (AUTO) 93.3 % (43.0-81.0); PLATELET COUNT (AUTO) 320 K/uL (150-450); RED BLOOD CELL COUNT(AUTO) 3.35 MIL/uL (4.5-6.0); WHITE BLOOD COUNT (AUTO) 23.7 K/uL (4.3-11.0)
[2021-06-29] MEDS ORDERED: VASOPRESSIN INJ 20 UNIT/ML VIAL ONE (03:10)
[2021-06-29] MEDS: PROPOFOL 100 ML IV PRN (03:17)
[2021-06-29] MEDS: VASOPRESSIN INJ 40 UNIT in IV NS 0.9% 38 ML IV PRN ×2 (03:29→22:39)
[2021-06-29] MEDS: IV D5/ 0.9% NACL 1,000 ML IV PRN (03:32)
[2021-06-29 04:58] LABS: HEMATOCRIT 32 % (39-51); HEMOGLOBIN 10.6 g/dL (13.5-17.5); LYMPHOCYTES % (AUTO) 4.1 % (20.0-44.0); MEAN CORPUSCULAR HGB CONC 33 g/dl (31.0-36.0); MEAN CORPUSCULAR VOLUME 97 fL (80-96); MONOCYTES # (AUTO) 0.6 K/uL (0.1-1.30); MONOCYTES % (AUTO) 2.3 % (2.0-12.0); NEUTROPHILS # (AUTO) 22.7 K/uL (1.8-8.9); NEUTROPHILS % (AUTO) 93.6 % (43.0-81.0); PLATELET COUNT (AUTO) 338 K/uL (150-450); RED BLOOD CELL COUNT(AUTO) 3.28 MIL/uL (4.5-6.0); WHITE BLOOD COUNT (AUTO) 24.2 K/uL (4.3-11.0)
--- NOTE | 2021-06-29 05:02 | NUR ---
RT NOTE PT RECEIVED INTUBATED VIA 7.5 ETT @ 24 CM LIP LINE. PT ON CURRENT SETTINGS OF AC 28, 480, 100%, +15. VENT IS PLUGGED INTO RED OUTLET W BMV @ HOB. ALARMS SET AND AUDIBLE. PT IN CRITICAL CONDITION. Addendum: 06/29/21 at 0537 by ORACIO LOPEZ RT Amended: Links added.
[2021-06-29 05:20] LABS: CARBON DIOXIDE 22 mmol/L (21-32); CHLORIDE 107 mmol/L (98-107); CREATININE 3.7 mg/dL (0.6-1.3); GLUCOSE 225 mg/dL (74-106); SODIUM SERUM 142 mmol/L (136-145); UREA NITROGEN, BLOOD 46 mg/dL (7-18)
[2021-06-29] MEDS: HYDROCORTISONE SOD SUCCINATE 100 MG/2 ML VIAL IV SCH ×3 (05:53→21:39)
[2021-06-29] MEDS ORDERED: PHENYLEPHRINE 10 MG/ML VIAL ONE (06:29)
--- NOTE | 2021-06-29 07:02 | NUR ---
RN NOTES PATIENT REMAIN SEDATED. INTUBATED WITH VENT SETTING OF AC: 28, TV: 480, FIO2:100, PEEP: 15. NO RESPIRATORY DISTRESS NOTED DURING SHIFT. V-PACING WITH FIRST DEGREE AVB, SATURATION OF 93 PERCENT. SKIN COOL AND CLAMMY, AFEBRILE, LATEST TEMPERATURE OF 97.5. PATIENT REMAINS WITH BILATERAL SOFT WRIST RESTRAINTS. CAPILLARY REFILL WNL. LAST RESIDUAL OF 150 ML, BROWNISH COLOR. G-TUBE FEEDING REMAIN ON HOLD. INCREASED IVF FROM 60 CC/HR TO 100 ML/HR PER MD ORDER. LOW URINE OUTPUT CONTINUE ON PROPOFOL, VASOPRESSIN, LEVOPHED, NORSYNEPHRINE. TITRATED PER PROTOCOL ORDER. APPLIED LOW AIR LOSS MATTRESS. KEPT CLEAN AND DRY. ENDORSED TO NEXT SHIFT ACCORDINGLY.
--- NOTE | 2021-06-29 07:15 | NUR ---
RN NOTES RECEIVED PT ON BED INTUBATED AND SEDATED ON DIPRIVAN AT 15 MCG/KG/MIN , FIO2 SAT 100 ON VENT , O2 SAT IN LOW 90' , MUKESH AT 3 MCG/KG/MIN, VASOPRESSIN AT .04, LEVO AT .3 MCG/KG/MIN RUNNING FOR BP SUPPORT, ON TELE , V-PACING HR IN 120'S , QUINONES WITH SMALL AMOUNT OF URINE DRAINING , TF ON HOLD DUE TO HIGH RESIDUAL , DR ZEE AT THE BEDSIDE , IV SITES CLEAN, DRY AND AND INTACT, BED LOCKED AND IN LOWEST POSITION, SR UP x3, CALL LIGHT WITHIN EASY REACH, CONTINUE TO MONITOR .
[2021-06-29] MEDS: NOREPINEPHRINE 32 MG in IV NS 0.9% 218 ML IV PRN ×3 (07:36→20:46)
[2021-06-29] MEDS ORDERED: HEPARIN INFUSION/D5W 500 ML IV PRN (08:00)
[2021-06-29] MEDS ORDERED: BUMETANIDE INJ 8 MG in IV NS 0.9% 48 ML IV ONE (08:00)
[2021-06-29] MEDS: MEROPENEM 1 G in IV NS 0.9% 100 ML IV SCH ×2 (08:27→21:39)
[2021-06-29] MEDS: ATORVASTATIN 10 MG TABLET PO SCH (08:28)
[2021-06-29] MEDS: PROSOURCE / PROSTAT (PYXIS) 30 ML UDC GT SCH (08:28)
[2021-06-29] MEDS: TIMOLOL -XE 0.5% 5 ML BOTTLE EACHEYE SCH (08:28)
--- NOTE | 2021-06-29 09:05 | NUR ---
RN NOTES PT ON THREE PRESSORS MAXIMUM RATE, O2 SAT IN 70'S , BLOOD PRESSURE DECREASING , ED LOWE AND DR ZEE AND DR BIANCHI NOTIFIED. SPOKEN TO PT 'S SON ( MARLEEN) REGARDING PT CODE STATUS ON THE PHONE, PT'S SON REQUESTING DNR STATUS . DR WARD NOTIFIED, DNR ORDER PLACED ON THE CHART ,
[2021-06-29 10:40] LABS: ABG BASE EXCESS -18.4 mmol/L; ABG OXYGEN SATURATION 80.9 % (92.0-98.5); ABG PCO2 50.6 mmHg (35.0-45.0); ABG PH 7.007 (7.350-7.450); ABG PO2 57.3 mmHg (75.0-100.0); AaDO2 605.1 mmHg; COHb 0.3 % (0.5-1.5); MetHb 0.3 % (0.0-1.5); O2Hb 80.4 % (94.0-97.0); PEEP,BG 15 cm H2O; SITE, ABG Left Femoral; VT, ABG 480 mL
[2021-06-29] MEDS ORDERED: SODIUM BICARBONATE SYR 50 MEQ/50 ML DISP.SYRIN ONE (10:51)
--- NOTE | 2021-06-29 10:51 | NUR ---
VENT CHANGES BELOW PER DR. BIANCHI: RATE from 28 to 32 VT from 480 to 500 ML rn aware on vent changes made. Addendum: 06/29/21 at 1053 by KENYON HUNTER RT Amended: Links added.
[2021-06-29] MEDS ORDERED: SODIUM BICARBONATE SYR 50 MEQ/50 ML DISP.SYRIN IV ONE (11:00)
[2021-06-29] MEDS ORDERED: VANCOMYCIN 1 GM in IV D5W 250 ML IV SCH (12:00)
--- NOTE | 2021-06-29 14:00 | NUR ---
RN NOTES PT'S SONS VISITING PT AT THE WINDOW , AWARE OF PT STATUS , PT ON THREE PRESSORS, AWARE, NO IMPROVEMENT NOTED, PT IS NOT STABLE , PT IS DNR PER FAMILY REQUEST , CONTINUE TO MONITOR
[2021-06-29 17:39] LABS: CALCIUM, SERUM 7.9 mg/dL (8.5-10.1); CARBON DIOXIDE 15 mmol/L (21-32); CHLORIDE 108 mmol/L (98-107); CREATININE 4.8 mg/dL (0.6-1.3); GLUCOSE 167 mg/dL (74-106); POTASSIUM 4.8 mmol/L (3.5-5.1); SODIUM SERUM 146 mmol/L (136-145); UREA NITROGEN, BLOOD 61 mg/dL (7-18)
[2021-06-29] MEDS ORDERED: SODIUM BICARBONATE SYR 50 MEQ/50 ML DISP.SYRIN IV STA (18:18)
--- NOTE | 2021-06-29 18:30 | NUR ---
RN NOTES PT REMANIS INTUBATED , ON VENT , FIO2 AT 100%, NOT RESPONDING TO PAINFUL STIMULI, PUPILS ARE NOT REACTIVE, HR IN 120'S, V- PACING, LEVO AT 1 MCG.KG/MIN , MUKESH AT 3 MCG/KG/MIN, VASOPRESSIN AT .04 RUNNING VIA R FEMORAL TLC, NO URINE OUTPUT NOTED AT THIS TIME , DR HSU NOTIFIED, SR UP x3, CALL LIGHT WITHIN EASY REACH , BED LOCKED AND IN LOWEST POSITION , WILL ENDORSE TO REMEDIATION PROJECT ENGINEER NURSE FOR CONTINUITY OF CARE.
--- NOTE | 2021-06-29 20:10 | NUR ---
RECEIVED PT INTUBATED 7.5 ETT SECURED AT 24CM AT THE LIP. VENT ALARMS ST AND AUDIBLE. AMBU BAG AT BEDSIDE. PT IN CRITICAL CONDITION. CONTINUE TO MONITOR CLOSELY. Addendum: 06/29/21 at 2011 by BECKI CARDOSO RT Amended: Links added.
[2021-06-29] MEDS: LATANOPROST EYE DROP 0.005% 2.5 ML BOTTLE OP SCH (21:40)
[2021-06-30] VITALS (20 sets, daily range): BP systolic 35–166; BP diastolic 16–134
[2021-06-30] MEDS: PHENYLEPHRINE 100 MG in IV NS 0.9% 240 ML IV PRN ×2 (00:33→07:04)
[2021-06-30] MEDS: FLUDROCORTISONE 0.1 MG TABLET NG SCH ×2 (00:47→05:39)
[2021-06-30] MEDS: NOREPINEPHRINE 32 MG in IV NS 0.9% 218 ML IV PRN ×2 (02:59→09:00)
[2021-06-30 03:50] LABS: BASOPHILS % (AUTO) 0.2 % (0.0-2.0); HEMATOCRIT 27 % (39-51); HEMOGLOBIN 8.7 g/dL (13.5-17.5); LYMPHOCYTES # (AUTO) 1.3 K/uL (0.8-4.8); LYMPHOCYTES % (AUTO) 5.4 % (20.0-44.0); MEAN CORPUSCULAR HGB CONC 32 g/dl (31.0-36.0); MEAN CORPUSCULAR VOLUME 101 fL (80-96); MONOCYTES # (AUTO) 0.7 K/uL (0.1-1.30); MONOCYTES % (AUTO) 2.9 % (2.0-12.0); NEUTROPHILS # (AUTO) 22.4 K/uL (1.8-8.9); NEUTROPHILS % (AUTO) 91.5 % (43.0-81.0); PLATELET COUNT (AUTO) 272 K/uL (150-450); RED BLOOD CELL COUNT(AUTO) 2.67 MIL/uL (4.5-6.0); WHITE BLOOD COUNT (AUTO) 24.5 K/uL (4.3-11.0)
[2021-06-30] MEDS: HYDROCORTISONE SOD SUCCINATE 100 MG/2 ML VIAL IV SCH (05:39)
--- NOTE | 2021-06-30 07:15 | NUR ---
CRIMINAL PSYCHOLOGIST NOTES RECEIVED PT ON BED. TOLERATING VENT SETTINGS. O2 SAT IN LOW 90s. THREE PRESSORS ON MAX RATE. LEVO 32 @1, MUKESH @3, VASO @0.04. V-PACING ON TELE MONITOR. QUINONES CATH IN PLACE. WITH 10CC OF URINE. TF ON HOLD DUE TO HIGH RESIDUAL. IV SITES ALL INTACT, PATENT AND FLUSHED. SAFETY MEASURES IN PLACE. BED LOCKED AND IN LOWEST POSITION WITH SIDE RAILS UP x3. WILL CONTINUE TO MONITOR.
[2021-06-30 07:25] LABS: LYMPHOCYTES % (MANUAL) 6 % (16-48); MONOCYTES % (MANUAL) 2 % (0-11.0); NEUTROPHILS % (MANUAL) 92 (42-76)
[2021-06-30] MEDS: ATORVASTATIN 10 MG TABLET PO SCH (08:15)
[2021-06-30] MEDS: TIMOLOL -XE 0.5% 5 ML BOTTLE EACHEYE SCH (08:15)
[2021-06-30] MEDS: MEROPENEM 1 G in IV NS 0.9% 100 ML IV SCH (08:15)
[2021-06-30] MEDS: PROSOURCE / PROSTAT (PYXIS) 30 ML UDC GT SCH (08:16)
--- NOTE | 2021-06-30 10:10 | NUR ---
PATIENT NOTED ASYSTOLE ON MONITOR. NO PALPABLE PULSES. NO HEART TONE. PUPILS FIXED AND DILATED. NO SPONTANEOUS BREATHING OVER THE VENT. PATIENT DNR STATUS. PRONOUNCED.
--- NOTE | 2021-06-30 10:15 | NUR ---
RN NOTES MD MADE AWARE. CALLED FAMILY TO INFORM ABOUT PT PASSING.
--- NOTE | 2021-06-30 10:20 | NUR ---
RN NOTES CALLED [facility]. CASE [id number]
--- NOTE | 2021-06-30 12:00 | NUR ---
RN NOTES [facility] PICKED UP PT'S BODY. BAG TAG, TOE TAG AND WRIST BAND IN PLACE. FAMILY AT BEDSIDE. ALL BELONGINGS COMPLETE, SENT HOME TO SON, BELONGINGS LIST SIGNED.
[2021-06-30] MEDS ORDERED: MEROPENEM 500 MG in IV NS 0.9% 100 ML IV SCH (21:00)
== END 2021-06-30 10:10 | DRG 208 ==
LOC: ER 18:41 → ICU 19:57
PROVIDERS: ADMIT Family Medicine; ATTEND Internal Medicine
PROC: 5A1945Z Respiratory Ventilation, 24-96 Consecutive Hours (ICD-10-PCS; principal; 2021-06-26)
PROC: 0BH18EZ Insertion of Endotracheal Airway into Trachea, Via Natural or Artificial Opening Endoscopic (ICD-10-PCS; 2021-06-26)
PROC: 05HC33Z Insertion of Infusion Device into Left Basilic Vein, Percutaneous Approach (ICD-10-PCS; 2021-06-26)
DX: J96.01 Acute respiratory failure with hypoxia (principal); I21.A1 Myocardial infarction type 2; J15.9 Unspecified bacterial pneumonia; N17.0 Acute kidney failure with tubular necrosis; G93.41 Metabolic encephalopathy; I50.21 Acute systolic (congestive) heart failure; E43 Unspecified severe protein-calorie malnutrition; R57.9 Shock, unspecified; E87.4 Mixed disorder of acid-base balance; J96.02 Acute respiratory failure with hypercapnia; Z66 Do not resuscitate; I25.10 Atherosclerotic heart disease of native coronary artery without angina pectoris; Z20.822 Contact with and (suspected) exposure to COVID-19; Z95.0 Presence of cardiac pacemaker; D63.8 Anemia in other chronic diseases classified elsewhere; R73.9 Hyperglycemia, unspecified; I11.0 Hypertensive heart disease with heart failure; N40.0 Benign prostatic hyperplasia without lower urinary tract symptoms; Y95 Nosocomial condition; I49.9 Cardiac arrhythmia, unspecified; K40.90 Unilateral inguinal hernia, without obstruction or gangrene, not specified as recurrent
CPT/HCPCS: 31720; 36410; 36415; 36600; 71045-TC; 80048-TC; 80053-TC; 80061-TC; 80076-TC; 81001; 82533; 82550-TC; 82728-TC; 82803-TC; 82962-TC; 83605-TC; 83615-TC; 83735-TC; 83880; 84100-TC; 84484-TC; 85025-TC; 85378-TC; 85385-TC; 85730-TC; 86140-TC; 87040-TC; 87081-TC; 87086-TC; 93307-TC; 94002-TC; 94003-TC; 94760-TC; 94799-TC; 99082-TC; A4217; A6403; G0378; J0692; J0696; J1100; J1644; J1650; J1720; J2185; J2370; J3370; J3490; J7030; J7040; J7042; J7050; J7060; Q9967; U0003